=== PATIENT | male | born 1995 | race Caucasian/White ===

== ENCOUNTER 2018-07-07 14:06 | Emergency (ER) | payer SELFPAY ==
[~2018-07-07] VITALS: Ht 182.8 cm; Wt 79.4 kg
[2018-07-07 14:12] VITALS: BP 136/86
[2018-07-07] MEDS ORDERED: CEPHALEXIN500 M1 PO (15:38)
[2018-07-07] MEDS ORDERED: Bactroban Oint22 GM T (15:38)
== END 2018-07-07 15:46 | disposition home or self-care (01) ==
LOC: ED 14:06
DX: S46.221A Laceration of muscle, fascia and tendon of other parts of biceps, right arm, initial encounter (principal); Z23 Encounter for immunization; F17.200 Nicotine dependence, unspecified, uncomplicated; W22.8XXA Striking against or struck by other objects, initial encounter; Y93.H3 Activity, building and construction; Y92.69 Other specified industrial and construction area as the place of occurrence of the external cause; Y99.8 Other external cause status

== ENCOUNTER 2020-03-28 22:45 | Emergency (ER) | payer SELFPAY ==
[~2020-03-28] VITALS: Ht 182.8 cm; Wt 83.9 kg
[~2020-03-28 22:45] MED LIST: Bactroban Oint22 GM T; CEPHALEXIN500 M1 PO; KEFLEX500 M1 PO
[2020-03-28 22:53] VITALS: BP 129/74
[2020-03-29 00:22] LABS: BASO % 0.2 % (0.0-1.0); EOS # 0.1 10*3/uL (0.0-0.4); EOS % 0.6 % (1.0-4.0); HEMATOCRIT 38.1 % (42.0-52.0); LYMPH # 2.6 10*3/uL (1.3-4.4); LYMPH % 23.9 % (27.0-41.0); MEAN CORPUSCULAR HGB 28.8 pg (27.0-31.0); MEAN CORPUSCULAR HGB CONC 33.1 g/dl (33.0-37.0); MEAN PLATELET VOLUME 9.5 fl (9.6-12.3); MONO # 0.9 10*3/uL (0.1-1.0); MONO % 8.5 % (3.0-9.0); NEUT # 7.3 10*3/uL (2.3-7.9); NEUT % 66.6 % (47.0-73.0); PLATELET COUNT AUTOMATED 254 10*3/uL (130-400); RED BLOOD COUNT 4.38 10*6/uL (4.50-5.90); RED CELL DISTRI WIDTH 13.4 % (0-14.5)
[2020-03-29 00:38] LABS: ALBUMIN 3.8 gm/dl (3.1-4.5); ALKALINE PHOSPHATASE 96 U/L (45-117); BUN 12 mg/dl (7-24); CHLORIDE 102 mmol/L (98-107); CREATININE 0.77 mg/dL (0.70-1.30); POTASSIUM 3.6 mmol/L (3.5-5.1); SGOT/AST 51 IU/L (3-35); SGPT/ALT 125 U/L (12-78); SODIUM 137 mmol/L (136-145); TOTAL PROTEIN 8.2 gm/dL (6.4-8.2)
[2020-03-29] MEDS ORDERED: SEPTDS PO (06:01)
[2020-03-29] MEDS ORDERED: CEPHALEXIN500 M1 PO (06:01)
== END 2020-03-29 02:59 | disposition left against medical advice (07) ==
LOC: ED 22:45
PROVIDERS: Physician Assistant
DX: L03.113 Cellulitis of right upper limb (principal); L08.9 Local infection of the skin and subcutaneous tissue, unspecified

== ENCOUNTER 2020-06-14 23:23 | Emergency (ER) | payer OTHER ==
[~2020-06-14] VITALS: Ht 172.7 cm; Wt 82.1 kg
[~2020-06-14 23:23] MED LIST changes: +SEPTDS PO
[2020-06-14 23:49] LABS: BASO % 0.2 % (0.0-1.0); EOS # 0.1 10*3/uL (0.0-0.4); HEMATOCRIT 42.6 % (42.0-52.0); LYMPH # 3.8 10*3/uL (1.3-4.4); LYMPH % 37.1 % (27.0-41.0); MEAN CELL VOLUME 84.4 fl (80.0-94.0); MEAN CORPUSCULAR HGB 27.7 pg (27.0-31.0); MEAN CORPUSCULAR HGB CONC 32.9 g/dl (33.0-37.0); MEAN PLATELET VOLUME 9.5 fl (9.6-12.3); MONO # 0.8 10*3/uL (0.1-1.0); MONO % 8.2 % (3.0-9.0); NEUT # 5.4 10*3/uL (2.3-7.9); NEUT % 52.4 % (47.0-73.0); PLATELET COUNT AUTOMATED 215 10*3/uL (130-400); RED BLOOD COUNT 5.05 10*6/uL (4.50-5.90); RED CELL DISTRI WIDTH 12.6 % (0-14.5); WHITE BLOOD COUNT 10.3 10*3/uL (4.8-10.8)
[2020-06-14 23:55] VITALS: BP 149/70
[2020-06-15 00:07] LABS: ALBUMIN 3.5 gm/dl (3.1-4.5); ALKALINE PHOSPHATASE 99 U/L (45-117); BUN 13 mg/dl (7-24); CHLORIDE 106 mmol/L (98-107); CREATININE 0.97 mg/dL (0.70-1.30); ETHYL ALCOHOL < 3.0 mg/dl (<3); POTASSIUM 3.8 mmol/L (3.5-5.1); SGOT/AST 51 IU/L (3-35); SGPT/ALT 83 U/L (12-78); SODIUM 140 mmol/L (136-145); TOTAL PROTEIN 7.5 gm/dL (6.4-8.2); TROPONIN I < 0.015 ng/ml (<0.045)
--- NOTE | 2020-06-18 11:45 | NUR ---
ALGEBRA TUTOR RECEIVED VOICE MESSAGE FROM [facility] ASKING FOR CONTACT NUMBER FOR [facility] FOR THIS PATIENT. ALGEBRA TUTOR RETURNED CALL TO A VOICE MAIL AND PROVIDED THE ONLY CONTACT NUMBER AVAILABLE.
== END 2020-06-15 01:40 | disposition short-term general hospital (02) ==
LOC: ED 23:23
PROVIDERS: Internal Medicine
DX: S42.002A Fracture of unspecified part of left clavicle, initial encounter for closed fracture (principal); T79.7XXA Traumatic subcutaneous emphysema, initial encounter; S70.212A Abrasion, left hip, initial encounter; S30.811A Abrasion of abdominal wall, initial encounter; S00.01XA Abrasion of scalp, initial encounter; V89.2XXA Person injured in unspecified motor-vehicle accident, traffic, initial encounter; Y93.89 Activity, other specified; Y92.89 Other specified places as the place of occurrence of the external cause; Y99.8 Other external cause status